=== PATIENT | female | born 1945 | race Caucasian/White ===

== ENCOUNTER 2020-08-30 20:10 | Inpatient (IN) | payer OTHER, MEDICAID, SELFPAY ==
[~2020-08-30] VITALS: Ht 149.9 cm; Wt 52.8 kg
--- NOTE | 2020-08-30 20:20 | NUR ---
PT BROUGHT IN FROM [facility] BY [facility]. PLACED ON BIPAP 08/05 RATE 18 FIO2 100%. ABG TO FOLLOW.
--- NOTE | 2020-08-30 20:25 | NUR ---
RECEIVED REPORT FROM [facility] WITH UNIT#[id number].
--- NOTE | 2020-08-30 20:28 | NUR ---
PATIENT BROUGHT IN BY [facility] WITH UNIT #[id number] FOR C/C OF SOB. PER MEDIC, PATIENT WAS AT [facility]M [facility] FACILITY AND BEGAN EXPERIENCING SOB. PER MEDIC, ONLY MEDICAL HX THEY WERE ABLE TO OBTAIN FROM FACILITY INCLUDED BIPOLAR AND KIDNEY FAILURE. PER MEDICS, PT WAS EXPERIENCING DIARRHEA X3 DAYS. MEDICS WERE UNABLE TO PROVIDE NAME OF [facility] FACILITY BUT PROVIDED ADDRESS, [id number], [place] [id number]. MEDICS DID NOT KNOW IF PATIENT HAD ANY ALLERGIES, MEDICS WERE UNABLE TO PROVIDE FURTHER DETAILS RELATING TO THE EVENTS THAT LED PATIENT TO OUR ED. PATIENT ARRIVED ON BIPAP, PER MEDIC, PT WAS 76% ON BIPAP. PT IS AWAKE, GROANING, SPEECH IS MUFFLED/GARBLED, NOTED SAYING "I WANT TO GO HOME", PATIENT IS UNABLE TO MOVE (4) EXTREMITIES INDEPENDENTLY, PER MEDIC, PATIENT IS BED BOUND (BASELINE), SKIN IS INTACT. PLACED ON FULL CRYPTOGRAPHER AND PULSE OX. DR. LOZADA AND RT LOOMIS AT BEDSIDE WITH MYSELF AND NINA CORNELL. PT IS IN BED 5 IN DIRECT SIGHT OF NURSES'S STATION.
--- NOTE | 2020-08-30 20:32 | NUR ---
DR LOZADA AND RT LOOMIS AT BEDSIDE.
--- NOTE | 2020-08-30 20:33 | NUR ---
IPAP/EPAP IS 18/8, RR 18, O2 100% ON BIPAP.
--- NOTE | 2020-08-30 20:56 | NUR ---
DECREASED FIO2 TO 30% FROM 100% POST ABG RESULTS. SPO2 MAINTAINED AT 94.
--- NOTE | 2020-08-30 21:02 | NUR ---
XRAY AT BEDSIDE.
--- NOTE | 2020-08-30 21:04 | NUR ---
EKG IN PROGRESS.
--- NOTE | 2020-08-30 21:11 | NUR ---
LAB AT BEDSIDE.
--- NOTE | 2020-08-30 21:12 | NUR ---
PT NOTED TO DESAT TO 86% ON BIPAP. RT EBONIE AT BEDSIDE TO INCREASE O2 TO 50% FROM PREVIOUS CHANGE OF 30%. PT O2 NOTED TO BE 88-91% AT THIS TIME.
--- NOTE | 2020-08-30 21:13 | NUR ---
PT DESAT TO 84% AND MAINTAINED. INCREASED FIO2 TO 50%.
--- NOTE | 2020-08-30 21:26 | NUR ---
SPOKE WITH LANIE CHAU FROM "[facility]" THE [facility] FACILITY WHERE PATIENT RESIDES. PER LANIE (COMPUTER SCIENCE INSTRUCTOR), PATIENT HAD DIARRHEA YESTERDAY AND WAS FOUND DROOLING TODAY WHEN PARAMEDICS WERE CALLED. PER LANIE, PATIENT HAS MEDICAL HX OF BIPOLAR DISORDER AND "TALKS TO HERSELF", BASELINE IS AAOX3, INTELLECTUAL DISABILITY, GLAUCOMA, HIGH CHOLESTEROL, HTN, STAGE 3 KIDNEY DISEASE (DOES NOT DO DIALYSIS), IS DEAF AND WEARS HEARING AIDS. PER LANIE, PATIENT'S NIECE GETACHEW PERRY HAS [facility] FOR PATIENT AND THE RN THAT TAKES CARE OF PATIENT IS KRAIG FABIAN AND CAN BE REACHED AT . DR. LOZADA MADE AWARE. LIST OF MEDS WILL BE DOCUMENTED MED REC.
[2020-08-30] MEDS ORDERED: VAL250 PO (21:33)
[2020-08-30] MEDS ORDERED: PROZAC10 M2 (21:34)
[2020-08-30] MEDS ORDERED: ABILIFY15 M1 PO (21:34)
[2020-08-30] MEDS ORDERED: SIMVASTATIN80 M1 PO (21:35)
[2020-08-30 21:36] LABS: CALCIUM 9.6 mg/dL (8.5-10.1); CARBON DIOXIDE 29.2 mmol/L (21-32); CHLORIDE SERUM 99 mmol/L (98-107); CREATININE SERUM 1.8 mg/dL (0.6-1.0); GLUCOSE SERUM 245 mg/dL (74-106); POTASSIUM SERUM 3.7 mmol/L (3.5-5.1); SODIUM SERUM 140 mmol/L (136-145)
[2020-08-30] MEDS ORDERED: LUMIGAN2.5 M1 (21:36)
[2020-08-30] MEDS ORDERED: BETIMOL5 M1 (21:36)
[2020-08-30] MEDS ORDERED: FUROSEMIDE20 MG PO (21:36)
[2020-08-30 21:37] LABS: BASOPHIL % 0.1 % (0-2); PLATELET COUNT 274 x10^3mcL (130-400); RED CELL DISTRIBUTION WIDTH 13.6 % (11.5-14.5)
[2020-08-30] MEDS ORDERED: COZAAR50 M1 PO (21:37)
[2020-08-30] MEDS ORDERED: NATURAL IRON65 MG PO (21:37)
--- NOTE | 2020-08-30 21:39 | NUR ---
PER TONI PERRY WILL FAX [facility] TOMORROW. PER GETACHEW PERRY, [facility] INCLUDE "NOT PROLONGING LIFE". DR. LOZADA AND MARIANN RICE MADE AWARE.
[2020-08-30 21:40] LABS: ALKALINE PHOSPHATASE 115 U/L (46-116); ALT/SGPT 20 U/L (14-59); AST/SGOT 30 U/L (15-37); BILIRUBIN TOTAL 0.7 mg/dL (0.20-1.00); C REACTIVE PROTEIN 3.5 mg/dL (<=0.9); LACTIC DEHYDROGENASE (LDH) 290 U/L (100-190); TOTAL PROTEIN, SERUM 7.6 g/dL (6.4-8.2)
[2020-08-30 21:41] LABS: ALBUMIN 3.2 g/dL (3.4-5.0)
--- NOTE | 2020-08-30 21:58 | NUR ---
PATIENT MEDICATED PER MD ORDER. PT REMAINS ON BIPAP WITH FULL MACHINE ASSEMBLER AND PULSE OX AND IN DIRECT SIGHT OF NURSES'S STATION.
--- NOTE | 2020-08-30 22:33 | NUR ---
RT CALLED AGAIN FOR BREATHING TX. DR. LOZADA AWARE THAT RT WILL BE AT BEDSIDE SHORTLY.
--- NOTE | 2020-08-30 22:57 | NUR ---
RT AT BEDSIDE ADMINISTERING BREATHING TX.
--- NOTE | 2020-08-30 23:18 | NUR ---
RECEIVED VERBAL ORDER FROM TO INSERT VALLES CATHETER. ATTEMPT UNSUCCESSFUL. DR LOZADA CALLED TO BEDSIDE TO EXAMINE PT'S ANATOMY. MYSELF, KRAIG FAROOQ, AND DR LOZADA UNABLE TO ESTABLISH VALLES CATHETER DUE TO INABILITY TO IDENTIFY PT'S URETHRAL OPENING. PER DR LOZADA OK TO NOT ESTABLISH VALLES AT THIS TIME. ASSISTED BY EMT CHRISTEL.
--- NOTE | 2020-08-31 | NUR ---
PT MEDICATED PER MD ORDER. PT REMAINS ON FULL SINGER AND UNLOADER, BIPAP, AND PULSE OX IN DIRECT SIGHT OF NURSE'S STATION.
--- NOTE | 2020-08-31 00:40 | NUR ---
PT NOTED TO BE DOCUMENTED 'DNR'. SPOKE WITH RN CAREN, PER CAREN, PATIENT IS NOT DNR AND IS 'FULL CODE'. PER CAREN, PT HAS NO DOCUMENTATION AT THE [facility] INDICATING PT IS DNR. MD TO BE MADE AWARE. PATIENT DID NOT COME INTO [facility] EMERGENCY DEPARTMENT WITH ANY DOCUMENTATION FROM [facility] INDICATING DNR.
--- NOTE | 2020-08-31 00:44 | NUR ---
PT'S BP NOTED TO BE 198/93. RESIDENT MD ANDERS AT PT'S BEDSIDE AND MADE AWARE OF BP.
--- NOTE | 2020-08-31 00:46 | NUR ---
DR. ANDERS MADE AWARE OF FULL CODE STATUS, PER DR. ANDERS SHE WILL CHANGE CODE STATUS. DR. ANDERS MADE AWARE THAT PT REMAINS TACHYCARDIC, HR:130 WITH BP: 198/93 (128). NO FURTHER ORDERS ANTICIPATED AT THIS TIME.
--- NOTE | 2020-08-31 01:26 | NUR ---
PT MEDICATED PER MD ORDER FOR HTN WITH HYDRALAZINE. PT HEARD SHOUTING "I'M GOING TO THROW UP." PT MEDICATED WITH ZOFRAN PER MD ORDER. DR. ANDERS MADE AWARE OF TACHYCARDIA HR: 137. ASKED PATIENT IF SHE WAS IN PAIN PT SHOUTED "NO!". AWAITNG FURTHER ORDERS.
--- NOTE | 2020-08-31 01:58 | NUR ---
DR ANDERS CALLED REGARDING ORDER FOR KETAMINE TO DECREASE PT AGITATION AND CONTROL HR. PER DR ANDERS OK TO GIVE KETAMINE AT THIS TIME. PER DR ANDERS WILL CHANGE METOPROLOL ORDER TO LABETOLOL FOR HTN.
--- NOTE | 2020-08-31 02:30 | NUR ---
RT EBONIE AT BEDSIDE TO EVALUATE PATIENT.
[2020-08-31 02:40] LABS: CHOLESTEROL/HDL RATIO 2.8; MAGNESIUM 2.1 mg/dL (1.8-2.4); PHOSPHOROUS 4.7 mg/dL (2.5-4.9)
[2020-08-31 02:49] LABS: T3 TOTAL 1.04 ng/mL
[2020-08-31 02:50] LABS: FREE T4 1.37 ng/dL (0.76-1.46); FREE THYROXINE INDEX 4.1 ug/dL (1.4-4.5); T4(THYROXINE) 11.1 ug/dL (4.7-13.3)
--- NOTE | 2020-08-31 03:07 | NUR ---
PATIENT MEDICATED PER MD ORDER. EBONIE VEGA AT BEDSIDE TO RE-EVALUATE PT BIPAP. PT REMAINS ON FULL RAILROAD CAR CLEANER AND PULSE OX. IN FULL SIGHT OF NURSES'S STATION.
--- NOTE | 2020-08-31 03:22 | NUR ---
PATIENT SITTING IN GURNEY IN HIGH YEPEZ'S, ON FULL DINING CHAIR SEAT CUSHION TRIMMER AND PULSE OX. PT IS ABLE TO FOLLOW DIRECTIONS, AND TRACK APPROPRIATELY. PATIENT REMAINS IN DIRECT SIGHT OF NURSES'S STATION.
--- NOTE | 2020-08-31 04:15 | NUR ---
DR. ANDERS PAGED REGARDING PT VITAL SIGNS.
--- NOTE | 2020-08-31 04:29 | NUR ---
DR. ANDERS AT BEDSIDE TO RE-EVALUATE PATIENT.
[2020-08-31 05:16] VITALS: BP 216/98
--- NOTE | 2020-08-31 05:51 | NUR ---
RT AT BEDSIDE.
--- NOTE | 2020-08-31 05:55 | NUR ---
DR VOSS MADE AWARE OF PT'S VITAL SIGNS- 132/87 MAP 102, HR 127, RR 30, 100% ON BIPAP. NO FURTHER ORDERS ANTICIPATED FOR PT'S HR.
--- NOTE | 2020-08-31 06:51 | NUR ---
DR. VOSS MADE AWARE OF PT'S NEW VITALS, BP 149/89 MAP 109, HR 130, RR 36, 100%. DR. VOSS ALSO AWARE OF PT'S PO MEDICATIONS DUE AT 0900AM, PER DR. VOSS TO DOCUMENT THAT MEDICATIONS CANNOT BE GIVEN DUE TO PT BEING ON BIPAP. PER DR. VOSS TO ADMINISTER METOPROLOL AT THIS TIME.
--- NOTE | 2020-08-31 07:16 | NUR ---
PT MEDICATED PER MD ORDER. PT VERBALIZED UNDERSTANDING OF MEDICATION PRIOR TO ADMINISTRATION. PT REMAINS ON VENDING MACHINE COIN COLLECTOR, PULSE OX, AND BIPAP.
--- NOTE | 2020-08-31 07:23 | NUR ---
REPORT GIVEN TO KARAN CORNELL TO ASSUME CARE OF PT.
--- NOTE | 2020-08-31 08:41 | NUR ---
REPORT CALLED TO ABIMBOLA ON SECOND FLOOR. PT HAS CLEARER LUNGS ON RT THAN ON LT DOES GIVE EYE CONTACT WHEN SPOKEN TO.
--- NOTE | 2020-08-31 09:01 | NUR ---
ATTENDING PHYSCIAN NOTIFIED OF LACTIC ACID. NO ORDERS RECIEVED
--- NOTE | 2020-08-31 11:26 | NUR ---
ADMITTING PHYSCIAN (DR. AFRRELL) HERE, DID ROUND ON PT. IS AWARE OF ELEVATED BP AT 144/112,MAP 123. SAT LEVEL AT 100. CONTINUES ON BIPAP
--- NOTE | 2020-08-31 11:57 | NUR ---
SPOKE WITH ZOFIA MERINO ON 2ND FLOOR, TO CHECK IF PT WAS REASSIGNED AN APPROPRIATE ROOM THAT COULD TAKE A BIPAP. STILL NO BED AVAILABLE AT THIS TIME THAT COULD ACCOMODATE A BIPAP.
--- NOTE | 2020-08-31 13:01 | NUR ---
CONTINUES ON BIPAP AT THIS TIME. FOLLOWS COMMAND WITH EYES
--- NOTE | 2020-08-31 14:37 | NUR ---
AWAKE. FOLLOW WITH EYES. IS ABLE TO TALK A BIT WHEN BI PAP MASK IS OFF.
--- NOTE | 2020-08-31 15:57 | NUR ---
ULTRA SOUND AT BEDSIDE. SONOGRAPHY OF LOWER EXT IN PROGRESS
--- NOTE | 2020-08-31 16:57 | NUR ---
STILL NO CHANGES AT THIS TIME. AWAKENS TO VOICE, WHILE DOZING PEACEFULLY. BI PAP DEVICE MAINTAINED
--- NOTE | 2020-08-31 18:08 | NUR ---
ADULT DIAPER SOILED WITH LOOSE STOOL AND URINE. CLEANED AND NEW ADULT DEPEND REPLACED. REPOSITIONED IN BED. IV D5.9 PATENT IN RT EXT JUGULAR AT 80 CC HR. FOLLOWS WITH EYES WHEN SPOKEN TO. DOES HAVE SOME OCCATIONAL VERBAL FEEDBACK
--- NOTE | 2020-08-31 19:21 | NUR ---
REPORT RECEIVED FROM KARAN CORNELL TO ASSUME CARE OF PT.
--- NOTE | 2020-08-31 20:36 | NUR ---
PT IS RESTING IN [place] IRON WORKS, OPENS EYES TO MY VOICE, IN DIRECT SIGHT OF NURSING STATION, ON MEAL MILLER, BIPAP, AND PULSE OX.
--- NOTE | 2020-08-31 21:31 | NUR ---
PATIENT WAS ON BIPAP SETTINGS: 05/04 RATE 18 FIO2 30%. SPO2 99, HR 88 RR 20 WITH GOOD TIDAL VOLUMES AND PRESSURES. PT APPEARED COMFORTABLE WITH NO DISTRESS. REMOVED FROM BIPAP AND PLACED ON 2 L/M VIA NASAL CANNULA. HR 86, RR 21, SPO2 100%. PT RESPONSIVE TO COMMANDS WHEN ASKED TO COUGH TO SUCTION THE BACK OF THE MOUTH. APPEARS COMFORTABLE. WILL CONTINUE TO MONITOR.
--- NOTE | 2020-08-31 21:49 | NUR ---
SPOKE WITH STEVEN FROM PHARMACY WILL BRING 2.25GM OF ZOSYN. PRIMARY RN NINA MADE AWARE.
--- NOTE | 2020-08-31 22:10 | NUR ---
PT MEDICATED PER MD ORDER.
--- NOTE | 2020-08-31 22:20 | NUR ---
PT SPO2 NOTED TO BE 87% WITH SIMPLE MASK. PT COUGHING, COUGH SOUNDS ARE WET. PT SUCTIONED, LIGHT PINK/WHITE SECRETIONS NOTED. PT NOTED TO BE TACHYCARDIC AT 124. PT PLACED ON NRB, SPO2 97%, RT EBONIE AT BEDSIDE. MD ANDERS MADE AWARE.
--- NOTE | 2020-08-31 22:23 | NUR ---
PT DESAT TO 88% ON 2 L/M NASAL CANNULA. PLACED ON SIMPLE MASK AT 10 L/M BUT CONTINUED TO DESAT AND HR INCREASED TO 124. PLACED PT ON NONREBREATHER MASK AT 15 L/M, SPO2 INCREASED AND MAINTAINED AT 98% HR 124 RR 38.
--- NOTE | 2020-08-31 22:37 | NUR ---
PATIENT VERBALIZED "I'M COMFORTABLE" WHEN ASKED. PATIENT SITTING IN SEMI-YEPEZ'S IN [place], AWAKE, ACTING APPROPRIATELY FOR SELF IN DIRECT SIGHT OF NURSES'S STATION.
--- NOTE | 2020-09-01 03:47 | NUR ---
REPORT GIVEN TO BRYANNA CORNELL AT EXT [phone]
--- NOTE | 2020-09-01 04:03 | NUR ---
RECEIVED PT FROM ER DYAN MARTINEZ ACCOMAPNIED BY NURSE. PT IS ADMITTED FOR SOB AND DIARRHEA. PT IS AWAKE, ALERT,ORIENTED TO PERSON AND PLACE. SHE FOLLOWS SIMPLE COMMANDS. PT ON NONREBREATHER MASK AT 15L O2 AND SATTING 91%. LUNG SOUNDS W/ CRACKLES ON BILAT BASES. SHE HAS NO C/O PAIN. BOWEL SOUNDS ACTIVE. PT W/ LOOSE GRRENISH BLACK BM ON ARRIVAL. SKIN ALTERATIONS NOTED. PHOTOS TAKEN. PT CLEANED AND GOWN CHANGED. W/ IVF NS INFUSING VIA IV TO RT EJ. CALL LIGHT PLACED W/IN REACH.
--- NOTE | 2020-09-01 04:11 | NUR ---
PT TRANSFERED TO TELE AT THIS TIME IN NAD. PT AWAKE AND ALERT, ANSWERING QUESTIONS APPROPRIATELY. PT REMAINS ON NON-REBREATHER AT THIS TIME AND IS NOTED IN NO ACUTE RESP DISTRESS. IVS INTACT AND FLUSH WITH NO COMPLICATIONS. IV FLUIDS ENDORSED TO BRYANNA CORNELL. BRYANNA CORNELL AT BEDSIDE TO ASSUME CARE OF PT.
[2020-09-01 05:11] VITALS: BP 147/71
[2020-09-01 06:01] VITALS: BP 147/71
[2020-09-01 07:50] LABS: CARBON DIOXIDE 26.4 mmol/L (21-32); CHLORIDE SERUM 106 mmol/L (98-107); CREATININE SERUM 2.3 mg/dL (0.6-1.0); GLUCOSE SERUM 138 mg/dL (74-106); MAGNESIUM 1.8 mg/dL (1.8-2.4); PHOSPHOROUS 3.8 mg/dL (2.5-4.9); POTASSIUM SERUM 3.8 mmol/L (3.5-5.1); SODIUM SERUM 143 mmol/L (136-145)
[2020-09-01 08:33] VITALS: BP 127/79
[2020-09-01 09:01] LABS: BASOPHIL % 0.2 % (0.2-1.3); PLATELET COUNT 135 x10^3mcL (179-408); RED CELL DISTRIBUTION WIDTH 13.9 % (12.3-17.7)
--- NOTE | 2020-09-01 09:18 | NUR ---
PT WAS SEEN FOR DYSPHAGIA. PT HAD POCKETING FOR PUREE DIET AND ORAL SPILLAGE FOR HONEY THICK LIQUID. RECOMMENDATION NOTHING BY MOUTH
--- NOTE | 2020-09-01 11:09 | NUR ---
PT. ADMITTED WITH LOW FRED SCALE AT RISK, MULTIPLE ECCHYMOSIS TO UPPER ARMS AND BLANCHABLE REDNESS TO SACRAL AND BILATERAL HEELS, NO OPEN ACTIVE WOUNDS, HEEL RAISERS AND BARRIER CREAM APPLIED. INCONTINENT OF BOWEL AND BLADDER. POC DISCUSSED WITH PRIMARY RN, PT. WITH ACTIVE COUGH, HOB ELEVATED. CONTINUE TO FOLLOW PRESSURE INJURY PREVENTION INTERVENTIONS. -APPLY HYDRAGUARD TO SACRALCOCCYX AND ALL EXTREMITIES BID AND LADLE REPAIRER -TURN AND REPOSITION PATIENT Q 2H -ASSESS AND MONITOR SKIN CONDITION DURING POSITION CHANGE -OFFLOAD BILATERAL HEELS BY PLACING PILLOWS UNDER CALVES AT ALL TIMES, UNLESS OTHERWISE CONTRAINDICATED -PRESSURE REDISTRIBUTION BY PLACING PILLOWS AND OFFLOADING SACRALCOCCYX -KEEP SKIN CLEAN AND DRY AT ALL TIMES.
[2020-09-01 13:04] VITALS: BP 125/65
--- NOTE | 2020-09-01 13:20 | NUR ---
PLACED PT ON 10LPM SIMPLE MASK PT TOLERTING WELL WITH NO SIGN OF SOB OR INCREAED WOB NOTED AT THIS TIME. WILL CONTINUE TO MONITOR
[2020-09-01 14:03] LABS: rbc morphology (normal/abnorm) ABNORMAL (NORMAL)
--- NOTE | 2020-09-01 17:10 | NUR ---
RECEIVED PT. AT 0700 IN BED WITH NRB MASK IN PLACE AT 15L, MOIST CONGESTION NOTE, BREATH SOUNDS WITH FINE CRACKLES AND WHEEING NOTED. SUCTIONED PT. WITH SOME IMPROVEMENT NOTED. GOOD ORAL CARE PROVIDED AND REPOSITIONED THE PT. HOB ELEVATED. IN NO DISTRESS AT THIS TIME.
--- NOTE | 2020-09-01 17:14 | NUR ---
PT. NOW ON 9L VIA NRB MASK 02 SAT 97-98%.
[2020-09-01 17:19] VITALS: BP 142/71
--- NOTE | 2020-09-01 19:25 | NUR ---
RECEIVED PT IN BED AWAKE, ALERT, ORIENTED TO PERSON AND PLACE. SHE IS VERY [place]. SHE HAS NO C/O HEADACHE AND DIZZINESS. LUNG SOUNDS W/ COARSE CRACKLES AND RHONCHI BILAT. RESP EVEN AND UNLABORED AT THIS TIME. PT IS ON SIMPLE MASK AT 9L 02. SHE HAS NO C/O PAIN. W/ IV HL TO RT EJ. CALL LIGHT W/IN REACH.
[2020-09-01 20:58] VITALS: BP 145/68
--- NOTE | 2020-09-02 02:52 | NUR ---
PT APPEARS TO BE SLEEPING COMFORTABLY. RESP. EVEN AND UNLABORED.
[2020-09-02 05:01] VITALS: BP 151/71
--- NOTE | 2020-09-02 05:30 | NUR ---
STRAIGHT CATH DONE TO COLLECT URINE SPECIMEN ORDERED. CLEAR YELLOW URINE COLLECTED. PT TOLERATED PROCEDURE WELL .
--- NOTE | 2020-09-02 06:09 | NUR ---
PT SLEPT IN LONG INTERVALS. SHE WAS CALM THROUGHOUT THE NIGHT. SHE HAD NO EPISODE OF RESP. DISTRESS. PT REMAINED ON SIMPLE MASK AT 9L O32. SHE HAD BM X2. IVF D5NS AT 80 CC/HR INFUSING VIA IV TO RTEJ. ALL NEEDS ATTENDED TO.
[2020-09-02 07:33] LABS: CALCIUM 7.5 mg/dL (8.5-10.1); CARBON DIOXIDE 25.8 mmol/L (21-32); CHLORIDE SERUM 111 mmol/L (98-107); CREATININE SERUM 1.7 mg/dL (0.6-1.0); GLUCOSE SERUM 137 mg/dL (74-106); MAGNESIUM 2.1 mg/dL (1.8-2.4); PHOSPHOROUS 3.8 mg/dL (2.5-4.9); POTASSIUM SERUM 3.4 mmol/L (3.5-5.1); SODIUM SERUM 149 mmol/L (136-145)
[2020-09-02 07:54] VITALS: BP 145/75
[2020-09-02 11:26] LABS: CREATININE UR 93.4 mg/dL
[2020-09-02 11:59] VITALS: BP 146/75
[2020-09-02 14:05] LABS: BASOPHIL % 0.4 % (0.2-1.3); PLATELET COUNT 139 x10^3mcL (179-408); RED CELL DISTRIBUTION WIDTH 14.2 % (12.3-17.7)
--- NOTE | 2020-09-02 14:30 | NUR ---
PATIENT TESTED POSITIVE FOR MRSA. CONTACTED Iain FAROOQ TO LET HER KNOW. SHE WILL PLACE ORDER FOR BACTROBAN.
[2020-09-02 16:13] VITALS: BP 150/66
--- NOTE | 2020-09-02 20:28 | NUR ---
RECEIVED PT FROM DAY SHIFT NURSE. PT A/OX2, ORIENTED TO PERSON/PLACE. PT GRAND TRAVERSE. GARBLED SPEECH NOTED. ON TELE#45 READING NSR. NO S/S OF CHEST PAIN OR PRESSURE. PULSES PALPABLE. EDEMA TO BUE/BLE TRACE. RR EVEN AND UNLABORED ON 9L SIMPLE MASK. NO RESP DISTRESS NOTED. PT INCONTINENT OF URINE. GENERALIZED WEAKNESS NOTED. PT HAS ECCHYMOSIS TO BUE AND RUE HEALING WOUND, REDNESS TO PERINEUS/BUTTOCKS, AND REDNESS TO L FOOT. NO C/O PAIN OR DISCOMFORT. IV TO RIJ INFUSING D5NS AT 80ML/HR. CALL LIGHT WITHIN REACH. BED IN LOWEST POSITION. WILL CONTINUE TO MONITOR.
[2020-09-02 20:55] VITALS: BP 145/72
--- NOTE | 2020-09-03 01:20 | NUR ---
PT SLEEPING COMFORTABLY AT THIS TIME. NO SIGNS OF ACUTE DISTRESS NOTED. RR EVEN AND UNLABORED ON 9.5L SIMPLE MASK. NO C/O PAIN OR DISCOMFORT. IV INFUSING FLUIDS AT 80ML/HR. CALL LIGHT WITHIN REACH. WILL CONTINUE TO MONITOR.
[2020-09-03 05:52] VITALS: BP 106/65
[2020-09-03 06:53] LABS: BASOPHIL % 0.1 % (0.2-1.3); PLATELET COUNT 142 x10^3mcL (179-408); RED CELL DISTRIBUTION WIDTH 14.4 % (12.3-17.7)
[2020-09-03 06:57] LABS: CALCIUM 7.5 mg/dL (8.5-10.1); CARBON DIOXIDE 29.1 mmol/L (21-32); CHLORIDE SERUM 117 mmol/L (98-107); CREATININE SERUM 1.5 mg/dL (0.6-1.0); GLUCOSE SERUM 106 mg/dL (74-106); POTASSIUM SERUM 3.3 mmol/L (3.5-5.1); SODIUM SERUM 156 mmol/L (136-145)
--- NOTE | 2020-09-03 07:18 | NUR ---
PT AWAKE RESTING IN BED AT THIS TIME. NO SIGNS OF ACUTE DISTRESS NOTED. RR EVEN AND UNLABORED ON 9.5L SIMPLE MASK. CALL LIGHT WITHIN REACH. BED IN LOWEST POSITION. WILL ENDORSE CARE TO ONCOMING SHIFT NURSE.
[2020-09-03 07:54] VITALS: BP 169/93
[2020-09-03 11:32] VITALS: BP 140/79
[2020-09-03 16:14] VITALS: BP 130/65
--- NOTE | 2020-09-03 20:18 | NUR ---
RECEIVED PT FROM DAY SHIFT NURSE. PT RESTING IN BED AT THIS TIME. NO SIGNS OF ACUTE DISTRESS NOTED. PT ORIENTED TO PERSON. NOORVIK. ON TELE#45, READING NSR. NO S/S OF CHEST PAIN OR PRESSURE. PULSES PALPABLE. EDEMA TO BUE AND BLE. RR EVEN AND UNLABORED ON 9.5L SIMPLE MASK. WET COUGH NOTED, NO SPUTUM FOR CULTURE. PT INCONTINENT OF URINE. GENERALIZED WEAKNESS NOTED. USES WALKER AT BASELINE. PT HAS REDNESS TO L FOOT, ECCHYUMOSIS TO BUE, HEALING WOUND TO RUE AND REDNESS TO FIORELLA-AREA/BUTTOCKS. NO S/S OF PAIN OR DISCOMFORT. IV TO R EJ AND R HAND PATENT AND INTACT. CALL LIGHT WITHIN REACH. BED IN LOWEST POSITION. WILL CONTINUE TO MONITOR.
[2020-09-03 20:32] VITALS: BP 161/69
--- NOTE | 2020-09-04 02:30 | NUR ---
PT OBSERVED SLEEPING. RR EVEN AND UNLABORED ON 9.5L SIMPLE MASK. NO S/S ACUTE DISTRESS. CALL LIGHT WITHIN REACH. WILL CONTINUE TO MONITOR.
[2020-09-04 06:21] VITALS: BP 173/78
--- NOTE | 2020-09-04 07:33 | NUR ---
PT AWAKE IN BED REQUESTING TO GO HOME. RR EVEN AND UNLABORED ON 8.5L SIMPLE MASK. NO SIGNS OF ACUTE DISTRESS NOTED. ALL NEEDS/CONCERNS ADDRESSED THROUGHOUT THE SHIFT. CALL LIGHT WITHIN REACH. CARE ENDORSED TO DAYSHIFT RN
[2020-09-04 07:54] VITALS: BP 182/63
[2020-09-04 07:59] LABS: CARBON DIOXIDE 27.9 mmol/L (21-32); CHLORIDE SERUM 117 mmol/L (98-107); CREATININE SERUM 1.3 mg/dL (0.6-1.0); GLUCOSE SERUM 136 mg/dL (74-106); MAGNESIUM 2.3 mg/dL (1.8-2.4); POTASSIUM SERUM 3.4 mmol/L (3.5-5.1); SODIUM SERUM 155 mmol/L (136-145)
[2020-09-04 08:27] LABS: CALCIUM 7.7 mg/dL (8.5-10.1)
[2020-09-04 12:20] LABS: BASOPHIL % 0.2 % (0.2-1.3); PLATELET COUNT 133 x10^3mcL (179-408); RED CELL DISTRIBUTION WIDTH 14.2 % (12.3-17.7)
[2020-09-04 12:28] LABS: rbc morphology (normal/abnorm) NORMAL (NORMAL)
[2020-09-04 12:45] VITALS: BP 135/72
[2020-09-04 16:40] VITALS: BP 170/60
--- NOTE | 2020-09-04 20:25 | NUR ---
RECEIVED PT FROM DAY SHIFT NURSE. PT A/O X1 TO PERSON. PT IS [place] AND HAS GARBLED SPEECH. PT IS ON TELE #45 WITH NSR. PT HAS NO S/S OF CHEST PAIN OR PRESSURE. PULSE IS PALPABLE. EDEMA TO BUE/BLE. RR EVEN AND UNLABORED. PT ON OXYGEN 4L SIMPLE MASK. BOWEL SOUNDS ACTIVE, LAST BM 09/04/20. PT IS INCONTINENT OF URINE. GENERALIZED WEAKNESS. NEEDS ASSISTANCE TURNING Q2HR, USES WALKER AT BASELINE. REDNESS NOTED ON LEFT FOOT, BUE ECCYMOSIS, AND REDNESS IN FIORELLA-AREA/BUTTOCKS. NO S/S OF PAIN AT THIS TIME. R EJ INFUSING D5NS AT 80 ML/HR, L HAND IV SALINE LOCKED PATENT AND INTACT. CALL LIGHT WITHIN REACH. BED IN LOWEST POSITION. WILL CONTINUE TO MONITOR.
[2020-09-04 21:25] VITALS: BP 174/76
--- NOTE | 2020-09-05 02:12 | NUR ---
PT OBSERVED SLEEPING AT THIS TIME. NO S/S OF ACUTE DISTRESS NOTED. RR EVEN AND UNLABORED. PLACE PT ON NC 4L, SIMPLE MASK D/C. CALL LIGHT WITHIN REACH. BED IN LOWEST POSITION. NO PAIN OR DISCOMFORT NOTED. WILL CONTINUE TO MONITOR.
[2020-09-05 05:36] VITALS: BP 169/59
--- NOTE | 2020-09-05 06:20 | NUR ---
PT OBSERVED RESTING IN BED AT THIS TIME.NO S/S OF ACUTE DISTRESS NOTED. NO C/O PAIN OR DISCOMFORT. RR EVEN AND UNLABORED ON 4L NC. CALL LIGHT WITHIN REACH. BED AT THE LOWEST POSITION. WILL ENDORSE CARE TO ONCOMING NURSE.
--- NOTE | 2020-09-05 07:30 | NUR ---
RECIEVED REPORT FROM [facility] NURSE. PATIENT IS CURRENTLY ON 4 LITER NASAL CANNULA. LUNG SOUNDS DIMINISHED THROUGHOUT. D5NS IS CURRENTLY INFUSING TO REJ IV SITE. PATIENT FAILED SWALLOW EVALUATION PER SPEECH THERAPY NOTES. PATIENT CURRENTLY BEING KEPT NPO. PATIENT IS AWAKE, BUT ONLY ORIENTED X 1. ORIENTED TO SELF ONLY. PATIENT COMES FROM [facility]. FALL PROTOCOLS CURRENTLY IN PLACE. BED IN THE LOW POSITION. BED ALARM ACTIVATED. WILL CONTINUE TO PROVIDE CARE FOR PATIENT.
[2020-09-05 08:08] VITALS: BP 131/65
[2020-09-05 09:04] LABS: CALCIUM 6.7 mg/dL (8.5-10.1); CARBON DIOXIDE 27.7 mmol/L (21-32); CHLORIDE SERUM 115 mmol/L (98-107); CREATININE SERUM 1.1 mg/dL (0.6-1.0); GLUCOSE SERUM 126 mg/dL (74-106); SODIUM SERUM 153 mmol/L (136-145)
[2020-09-05 09:10] LABS: BASOPHIL % 0.1 % (0.2-1.3)
[2020-09-05 09:36] LABS: POTASSIUM SERUM 2.7 mmol/L (3.5-5.1)
--- NOTE | 2020-09-05 09:48 | NUR ---
SPOKE WITH CAPRI THE NURSE PRACTIONER REGARDING PATIENT'S POTASSIUM LEVEL OF 2.7. FURTHER ORDERS TO FOLLOW.
[2020-09-05 09:58] LABS: PLATELET COUNT 125 x10^3mcL (179-408); RED CELL DISTRIBUTION WIDTH 14.6 % (12.3-17.7)
[2020-09-05 12:08] VITALS: BP 119/75
--- NOTE | 2020-09-05 15:24 | NUR ---
PATIENT RETRIEVED FOR VIDEO SWALLOW EVAL.
--- NOTE | 2020-09-05 15:44 | NUR ---
PT WAS SEEN FOR BARRIUM SWALLOW STUDY. PT HAD SILENT ASPIRATION FOR PUREE AND HONEY THICK LIQUID. RECOMMENDATION NOTHING BY MOUTH
--- NOTE | 2020-09-05 16:00 | NUR ---
PATENT HAS RETURNED FROM [facility].
--- NOTE | 2020-09-05 16:00 | NUR ---
Initial Nutrition Assessment: Estella Paz [id number] Dx: Sepsis, COPD exacerbation PMHx: HTN, CKD3, HLD, Bipolar PSHx: None Labs: (09/05) Na 153, K: 2.7, B/C: 28/1.1, Glu: 126, HgbA1C: 5.4%, Ca: 6.7, Ferritin: 1220, Meds: Vancomycin, metoprolol, heparin, feso4, Tricor, Zosyn, Cozaar, Lipitor, D5% Nacl0.9% IV Diet: NPO except meds, failed swallow eval PO intake since admission: 0% Ht: 149.8cm/59" Wt: 52.8kg/116# BMI: 23.5 kg/m2 Bed scale: 130# IBW: 98# %IBW: 118% UBW: unknown Age: 75 y/o F Food Allergies: NKFA per RN Skin condition: redness noted to L foot and buttocks, BUE ecchymosis, Anjel: 15 Edema: edema noted to BUE/BLE Last BM: 09/04 Per H&P 75 y/o F EMS was called due to patient drooling and experiencing some SOB. No previous hx of this occurring before. Per Nurse Estevan pt is somewhat communicative at detention and able to ambulate short distances with help. Pt is sedentary most of the time. RD Note: per Md progress note pt remain in ALOC and using BIPAP prn, getting IV hydration, failed swallow evaluation and NGT has been placed Problem with: N/V/D/C: no known issues per nursing Problems with: Chewing: Swallowing: failed swallow evaluation Current appetite: unknown Recent wt change: unknown %wt change: unknown Vitamin/Supplement use: unknown Special diet at home: unknown Physical activity: unknown Nutrition education given (specify specific nutrition education and handout given): no education given at this time Food-drug interactions? Education given? n/a Estimated Nutritional Needs Based on current body weight 52.8 kg Energy: 7712-2729 kcal/day (30-35 kcal/kg for viral infection) Protein: 63 g/day (1.2 g/kg d/t viral infection with CKD3) Fluid: 0028-1640 mL/day (1 mL/kcal) Nutrition Diagnosis: 1. Increased nutritional needs r/t infection aeb dx of sepsis. Intervention 1. Start oral diet per NETWORK ENGINEER ADMINISTRATOR when appropriate. 2. If patient is unable to start oral diet, recommend TF Jevity 1.2 at goal rate 55cc/hr x 24 hours to provide 1320 cc/1584 kcal/73 g protein/1065 cc free water. FWF 200 cc qshift. Total free water 1665 cc qd. Monitor/Evaluate Goal: PO intake at least 75% of estimated needs Monitor: PO intake, Labs, GI function F/U HR due 2-3 days 09/07-.
--- NOTE | 2020-09-05 16:00 | NUR ---
PATIENT RETURNED TO FLOOR FROM XRAY WITH RIGHT FOREARM SKIN TEAR. WILL PROVIDE WOUND CARE. SKIN TEAR DOCUMENTED AND PICTURES PLACED IN PATIENT'S CHART.
--- NOTE | 2020-09-05 16:01 | NUR ---
1. Start oral diet per SAND SCREENER when appropriate. 2. If patient is unable to start oral diet, recommend TF Jevity 1.2 at goal rate 55cc/hr x 24 hours to provide 1320 cc/1584 kcal/73 g protein/1065 cc free water. FWF 200 cc qshift. Total free water 1665 cc qd.
--- NOTE | 2020-09-05 16:35 | NUR ---
PATIENT RETURNED FROM XRAY WITH RIGHT FOREARM SKIN TEAR. WOULD CARE PROVIDED. GAUZE AND CANDIDO BANDAGE APPLIED TO SITE OF TEAR.
[2020-09-05 16:47] VITALS: BP 150/55
--- NOTE | 2020-09-05 20:30 | NUR ---
PT A&O X1 TO PERSON, PT RESPONDS TO NAME, HAS GARBBLED SPEECH AND DEVELOPMENTALLY DELAYED. PT IS BED FAST WITH BILATERAL HEEL PROTECTORS. PT HAS BRUISING AND SCABS BILATERALLY OF THE UPPER AND LOWER EXTREMITIES. PT HAS A SKIN TEAR OF THE RIGHT FOREARM PER PREVIOUS SHIFT, TEAR IS COVERED WITH STERILE GAUZE, NO ACTIVE BLEEDING NOTED. INTEGUMENTARY SYSTEM IS DRY AND THIN. PT IS ON NASAL CANNULA 4 LITERS, OXYGEN STAURATION OF 99%, RHONCHI HEARD THROUGHOUT. IV OF THE RIGHT JUGULAR VEIN RUNNING WITH DEXTROSE 5%-0.45% NsCl per orders, AND LEFT HAND IV PATENT AND INTACT. NG TUBE PATENT AND INTACT WITH JEVITY 1.2 RUNNING PER ORDERS, NO RESIDUAL NOTED. PT ON TELE #45 SHOWING NSR. PT TURNED TO THE LEFT SIDE, BED LEFT OF THE LOWEST LEVEL, CALL LIGHT WITHIN REACH, BED RAILS UP X2. WILL CONTINUE TO MONITOR.
[2020-09-05 22:12] VITALS: BP 149/58
--- NOTE | 2020-09-06 01:43 | NUR ---
PT RESTING WITH EYES CLOSED. NO C/O OR SIGNS OF PAIN, DISTRESS, OR DISCOMFORT. WILL CONTINUE TO MONITOR.
--- NOTE | 2020-09-06 02:00 | NUR ---
PT RESTING IN BED, NO SISMG OF PAIN, DISTRESS, OR DISCOMFORT. NG TUBE PATENTS, NO RESIDUAL FROM TUBE FEEDING. iNCREASED JEVITY 1.2 INCREASED FROM 20 ML/HR TO 30 ML/HR, PT GOAL IS 55 ML/HR. BED LEFT ON THE LOWEST LEVEL, BED RAILS UPX2, CALL LIGHT WITHIN REACH. WILL CONTINUE TO MONITOR.
--- NOTE | 2020-09-06 03:07 | NUR ---
PT RESTING IN BED WITH EYES CLOSED. NO C/O OR SIGN OF PAIN, DISTRESS, OR DISCOMFORT. BED ON LOWEST LEVEL, BED RAILS UP X2, CALL LIGHT WITHIN REACH. WILL CONTINUE TO MONITOR.
--- NOTE | 2020-09-06 06:12 | NUR ---
PT RESTING IN BED, RESPONDS TO NAME. SKIN TEAR ON RIGHT FOREARM HAS MODERATE BLEEDING. DRESSING CHANGED TO NONADHESIVE DRESSING WITH FISHNET. NO SIGNS OR C/O PAIN, DISTRESS, OR DISCOMFORT. NG TUBE PATENT RUNNING WITH JUVET 1.2, NO RESIDUAL NOTED, INCREASED FEDING TO 40 ML/HR PT GOAL IS 55 ML/HR. PT REMAINS WITH NASAL CANNULA 4 LITERS WITH OXYGEN SATURATION OF 99%. BED LEFT ON THE LOWEST LEVEL, CALL LIGHT WITHIN REACH, BED RAILS UP X2. WILL ENDORSE TO ONCOMING SHIFT.
[2020-09-06 06:46] VITALS: BP 163/67
[2020-09-06 07:44] LABS: BASOPHIL % 0.2 % (0.2-1.3); PLATELET COUNT 131 x10^3mcL (179-408); RED CELL DISTRIBUTION WIDTH 14.4 % (12.3-17.7)
--- NOTE | 2020-09-06 08:00 | NUR ---
RECEIVED PT IN BED A/A/OX1 WITH GARBLED SPEECH, ABLE TO VERBALIZE BASIC NEEDS. RESTLESS AT TIMES, BUT DOES NOT ATTEMPT AT LINES. RESP EVEN AND UNLABORED WITH DIMINISHED BS WITH CRACKLES AND CONGESTED COUGH. ON O2 AT 4L/MIN VIA NC. NGT FEEDING TO RT NARE OF JEVITY 1.2 AT 40ML/HR TO BE ADVANCED Q4HRS. NO RESIDUAL NEEDED. ABD SOFT, NONTENDER WITH ACTIVE BS X4. VOIDING FREELY AND INCONTINENT. NOTED WITH ECCHYMOSIS TO BUE, LARGE SKIN TEAR TO RFA. WITH DRSG IN PLACE CDI. BLANCHABLE ERRYTHEMA TO COCCYX AREA. REPOSITION Q2HRS. HEELS OFF LOADED WITH HEEL PROTECTORS IN PLACE. CALL LIGHT IN REACH NEEDS ATTENDED TO.
[2020-09-06 08:09] LABS: rbc morphology (normal/abnorm) NORMAL (NORMAL)
[2020-09-06 08:15] VITALS: BP 163/65
[2020-09-06 08:38] LABS: CALCIUM 6.7 mg/dL (8.5-10.1); CHLORIDE SERUM 116 mmol/L (98-107); CREATININE SERUM 1.1 mg/dL (0.6-1.0); GLUCOSE SERUM 108 mg/dL (74-106); POTASSIUM SERUM 3.5 mmol/L (3.5-5.1); SODIUM SERUM 153 mmol/L (136-145)
--- NOTE | 2020-09-06 10:40 | NUR ---
NOTED 20ML RESIDUAL FROM NGT, TF INCREASE TO 50ML/HR. FEEDIGN TOLERATED WELL AT THIS TIME. CALL LIGTH IN REACH NEEDS ATTENDED TO.
[2020-09-06 12:28] VITALS: BP 134/55
--- NOTE | 2020-09-06 13:18 | NUR ---
PT RESTING WITH EYES CLOSED. TF TOLERATED. CALM AND COMFORTABLE AT THIS TIME. CALL LIGHT IN REACH NEEDS ATTENDED TO.
--- NOTE | 2020-09-06 15:37 | NUR ---
CHECKED RESIDUAL, NO RESIDUAL AT THIS TIME. FEEDING RATE INCREASED TO 55ML/HR. PT HAS REACHED RATE GOAL AND TOLERATED WELL.
[2020-09-06 16:51] VITALS: BP 130/61
--- NOTE | 2020-09-06 20:00 | NUR ---
PT A/A/O X1, GARBLED SPEECH AND ABLE TO MAKE NEEDS KNOWN. DENIES DIZZINESS AND HEADACHE. BREATH SOUNDS CLEAR. BREATHING EVEN AND UNLABORED ON 4L NC, SPO2 100%. PRODUCTIVE COUGH NOTED, SUCTION PRN. DENIES CHEST PAIN AND PRESSURE. BOWEL SOUNDS ACTIVE. NO C/O N/V AND ABD PAIN. PT WITH NG TUBE ON THE RIGHT NARES WITH TUBE FEEDING OF JEVITY 1.2 RUNNING AT 55 ML/HR WITH 200 ML FREE H2O FLUSH ANTONIO 12 HOURS. NO RESIDUAL OUTPUT NOTED. SCATTERED ECCHYMOSIS NOTED ON BUE. SKIN TEAR WITH DRESSING C/D/I NOTED ON THE RIGHT FOREARM. PT WITH HEEL BOOT PROTECTOR. IV INTACT ON THE REJ AND INFUSING ORDERED AND IV SALINE LOCK NOTED ON THE LEFT HAND. MADE PT COMFORTABLE. PLACED CALL LIGHT WITH IN REACH. WILL CONTINUE TO MONITOR.
[2020-09-06 20:05] VITALS: BP 135/52
--- NOTE | 2020-09-07 00:32 | NUR ---
PT RESTING WITH EYES CLOSED. NO DISTRESS AND DISCOMFORT NOTED. NO RESIDUAL OUTPUT NOTED ON THE NGT, TUBE FEEDING. MADE PT COMFORTABLE. WILL CONTINUE TO MONITOR.
[2020-09-07 05:05] VITALS: BP 145/69
--- NOTE | 2020-09-07 06:20 | NUR ---
PT RESTING WITH EYES CLOSED. EASILY AROUSABLE WITH VERBAL STIMULI. PT CONTINUED TO BE ON TUBE FEEDING. NO RESIDUAL OUTPUT NOTED. IV INTACT AND INFUSING ORDERED. MADE PT COMFORTABLE. WILL ENDORSE TO THE AM NURSE ACCORDINGLY.
[2020-09-07 07:46] LABS: PLATELET COUNT 133 x10^3mcL (179-408); RED CELL DISTRIBUTION WIDTH 14.5 % (12.3-17.7)
--- NOTE | 2020-09-07 07:50 | NUR ---
RECEIVED PT FROM WATER [employer] PROJECT MANAGER NURSE. TELE #45, SR. PT IS A/OX1, GARBLED SPEECH, ABLE TO MAKE NEEDS KNOWN. BREATHING EVEN/UNLABORED ON 4 L NC. IN NO ACUTE RESP DISTRESS. PT IS INCONTINENT, HAD A LOOSE STOOL THIS AM, PROVIDED PERICARE. NG TUBE NOTED OT R GEOVANYE, JEVITY 1.2 RUNING AT 55ML/HR WITH 200ML FWF Q12 HR. NO RESIDUAL NOTED. GEN WEAKNESS NOTED, PT ON BEDREST. BILAT HEEL PROTECTOR IN PLACE. SKIN TEAR NOTED TO RFA, DRESSING CDI. PT IN NO APPARENT PAIN. IV TO REJ PATENT, CDI, INFUSING 1/2 NS AT 75ML/HR. BED IN LOWEST POSITION, BED ALARM ON, CALL LIGHT IN REACH. CONT CURRENT PLAN OF CARE.
[2020-09-07 07:55] LABS: CALCIUM 6.6 mg/dL (8.5-10.1); CHLORIDE SERUM 117 mmol/L (98-107); GLUCOSE SERUM 136 mg/dL (74-106); POTASSIUM SERUM 3.5 mmol/L (3.5-5.1); SODIUM SERUM 151 mmol/L (136-145)
[2020-09-07 08:10] VITALS: BP 159/59
[2020-09-07 11:08] LABS: BASOPHIL % 0 % (0.2-1.3)
[2020-09-07 11:53] LABS: rbc morphology (normal/abnorm) NORMAL (NORMAL)
[2020-09-07 13:06] VITALS: BP 167/75
--- NOTE | 2020-09-07 14:34 | NUR ---
PT AAOX1, ASKING FOR WATER. EDUCATED PT THAT WE CAN ONLY SWAB MOUTH WITH WATER, CANNOT DRINK AT THIS TIME. BREATHING EVEN/UNLABORED ON 3 L NC, IN ACUTE RESP DISTRESS. TUBE FEEDING CONTINUED AT 55 ML/HR, 200ML FWF Q 12 HRS. NO GASTRIC RESIDUAL NOTED AT THIS TIME. MED STUDENT IN ROOM ASSESSING PT. PT VOICES NO FURTHER CONCERS. CONT CURRENT PLAN OF CARE.
[2020-09-07 16:55] VITALS: BP 153/60
--- NOTE | 2020-09-07 17:35 | NUR ---
SPOKE WITH RIKI SPEECH THERAPIST, PT ASPIRATED AGAIN, IS NOT SAFE TO SWALLOW ANYTHING. WILL NOTIFY DR. CADR.
--- NOTE | 2020-09-07 17:56 | NUR ---
PT WAS SEEN FOR DYSPHAGIA. PT HAD POCKETING AND RISK OF ASPIRATION FOR PUREE DIET TRIALS. RECOMMENDATION NOTHING BY MOUTH
--- NOTE | 2020-09-07 18:26 | NUR ---
NOTIFIED DR. GOLDSMITH ABOUT PT'S FAILED SWALLOW EVAL. NO NEW ORDERS. PT A/OX1, SLEEPING, EASILY AROUSABLE TO VOICE. BREATHING EVEN/UNLABORED ON 3 L NC. IN NO ACUTE RESP DISTRESS. JEVITY 1.2 RUNNING AT GOA RATE OF 55ML/HR WITH 200ML FWF Q 12HRS. OML GASTRIC RESIDUAL NOTED. PT IN NO APPARENT PAIN, PT KEEPS ASKING FOR WATER. MOISTENED PT'S MOUTH WITH WATER AND SPONGE, APPLIED MOUTH MOISTURIZER. SUCTIONED PT'S MOUTH, MINIMAL PHLEGM NOTED. PT TOLERATED WELL. PT VOICED NO FURTHER CONCERNS. CONT CURRENT PLAN OF CARE.
--- NOTE | 2020-09-07 20:00 | NUR ---
PATIENT AWAKE, NON VERBAL. ABLE TO TRACK ME WITH HER EYES. NG TO R NARE INTACT. JEVITY INFUSING PER ORDERS. R EJ INFUSING PER ORDERS. TURNING Q2 HOURS. USING PILLOWS WELL. DEVELOPMENTALLY DELAYED. SKIN TEAR TO R FA DRESSING C/D/I. WILL CONTINUE TO MONITOR
[2020-09-07 20:51] VITALS: BP 142/63
--- NOTE | 2020-09-08 05:00 | NUR ---
CALLED HOUSE SUP REGARDING JEVITY FEEDING. NEED NEW BOTTLE. VERBALIZED SHE WILL TRY SOON SHE CAN. NO DISTRES NOTED
[2020-09-08 05:22] VITALS: BP 147/75
--- NOTE | 2020-09-08 07:46 | NUR ---
RECEIVED PT FROM GLOVE CUFFER NURSE. TELE # 45, SR. PT IS AAOX1, CONFUSED, GARBLED SPEECH, BUT ABLE TO MAKE NEEDS KNOWN. PT ASKING TO GO HOME, REORIENTED PT TO WHY SHE IS IN HOSPITAL. BREATHING EVEN/UNLABORED ON 3 L NC, IN NO ACUTE RESP DISTRESS. NG TUBE IN PLACE, PATENT, NO GASTRIC RESIDUAL NOTED. JEVITY 1.2 RUNNING AT GOAL RATE OF 55ML/HR WITH 200 ML FWF Q 12 HRS. PT IS INCONTINENT OF BOWEL AND URINE. GEN WEAKNES NOTED, TURN Q 2 HR. BILAT HEEL PROTECTOR IN PLACE. RFA SKIN TEAR DERSSING IN PLACE, CDI. PT IN NO APPARENT PAIN. IV TO L WRIST PATENT, INFUSING 1/2NS AT 75ML/HR. [facility], BED IN LOWEST POSTIION, BED ALARM ON.
[2020-09-08 08:53] VITALS: BP 152/63
[2020-09-08 10:57] LABS: PLATELET COUNT 119 x10^3mcL (179-408); RED CELL DISTRIBUTION WIDTH 14.6 % (12.3-17.7)
[2020-09-08 11:09] LABS: CALCIUM 6.2 mg/dL (8.5-10.1); CARBON DIOXIDE 28.7 mmol/L (21-32); CHLORIDE SERUM 113 mmol/L (98-107); GLUCOSE SERUM 129 mg/dL (74-106); POTASSIUM SERUM 4.8 mmol/L (3.5-5.1); SODIUM SERUM 149 mmol/L (136-145)
--- NOTE | 2020-09-08 11:09 | NUR ---
OBTAINED CONSENT FROM ANU PERRY ([facility]) FOR EGD/PEG PLACEMENT TODAY. VERIFIED WITH BHAVANA CORNELL.
--- NOTE | 2020-09-08 12:04 | NUR ---
PT GOING FOR EGD/PEG TUBE PLACEMENT, GAVE REPORT TO MIRA CORNELL. PER MIRA, HOLD OFF ON GIVING LASIX AT THIS TIME, SINCE PT IS GOING FOR PROCEDURE.
--- NOTE | 2020-09-08 12:17 | NUR ---
PT OFF UNIT FOR EGD/PEG PLACEMENT AT THIS TIME. TELE BOX STILL IN ROOM. AWAITIN PT ARRIVAL BACK ON UNIT.
[2020-09-08 13:30] LABS: MONOCYTE 5 % (0-7); SEGMENTED NEUTROPHILS 89 % (37-75)
[2020-09-08 13:31] LABS: rbc morphology (normal/abnorm) NORMAL (NORMAL)
[2020-09-08 14:00] VITALS: BP 132/63
--- NOTE | 2020-09-08 14:32 | NUR ---
PT ARRIVED BACK ON UNIT AT 1400. VSS. TELE PLACED BACK ON PT. BREATHING EVEN/UNLABORED ON 2 L NC. IN NO ACUTE RESP DISTRESS. PEG TUBE NOTED, ABD DRESSING AND ABD BINDER CDI, MINIMAL SANGUINOUS DRAINAGE NOTED TO INSERTION SITE. PER DR. NICKERSON'S NOTE, START PT ON JEVITY 1.2 FEEDING AT 30 ML/HR WITH 120 ML FWF Q 4HRS. 0 ML GASTRIC RESIDUAL NOTED AT THIS TIME, TUBE FEEDING STARTED PER ORDERS. IV TO L HAND PATENT, INFUSING 1/2NS AT 75ML/HR. PT IN NO APPARENT PAIN, VOICES NO FURTHER CONCERNS. BED IN LOWEST POSITION, CALL LIGHT IN REACH, BED ALARM ON. SPOKE WITH PHARMACY REGARDING PT'S LANSOPRAZOLE ORDER. PER [facility], WE DO NOT HAVE THIS MED IN HOSPITAL AT THIS TIME, BUT WILL TRY TO GET SOME FROM [facility]. IF WE CANNOT OBTAIN IT, THEN PHARMACY WILL CHANGE ORDER FOR LATER TIME.
[2020-09-08 16:39] LABS: BILIRUBIN DIRECT 0.16 mg/dL (0.0-0.2); BILIRUBIN TOTAL 0.3 mg/dL (0.20-1.00)
[2020-09-08 16:44] LABS: ALBUMIN 1.8 g/dL (3.4-5.0); TOTAL PROTEIN, SERUM 4.6 g/dL (6.4-8.2)
[2020-09-08 17:09] VITALS: BP 128/60
--- NOTE | 2020-09-08 18:50 | NUR ---
PT RESTING WITH EYES CLOSED, TELE # 45 SR. AAOX1, SPEECH GARBLED, ALATNA. BREATHING EVEN/UNLABORED ON 2 L NC. IN NO ACUTE RESP DISTRESS AT THIS TIME. PEG TUBE IN PLACE, 0 ML GASTRIC RESIDUAL AT THIS TIME. FEEDING RATE CONTINUED AT 30 ML/HR W/ 150 ML FWF Q 4 HR. *PHARMACY WAS NOT ABLE TO OBTAIN A LANSOPRAZOLE MEDICATION FROM [facility] TODAY. * WAS NOT GIVEN FOR THAT REASON. SKIN TEAR DRESSING TO RFA IN PLACE, CDI. IV TO LH PATENT, INFUSING 1/2 NS AT 75 ML/HR. WILL ENDORSE TO DIRECTOR OF EVENT MARKETING NURSE.
--- NOTE | 2020-09-08 21:00 | NUR ---
PATIENT RECEIVED FROM RN. LAYING QUIETLY IN BED. NO S/S OF DISTRESS. A/O X 1. SINUS RYTHM ON TELE. INCONTINENT. PEG TUBE RUNNING JEVITY 1.2 AT 30 MLS/HR. FREE WATER FLUSH 150MLS. NO RESIDUALS. GENERALIZED EDEMA. IV FLUIDS RUNNING 1/2 NS ORDERED. ON 2 L NASAL CANULA WITH SATURATION WNL. NO S/S OF DISTRESS, CALL LIGHT WITHIN REACH. WILL CONTINUE TO MONITOR.
[2020-09-08 21:48] VITALS: BP 133/50
--- NOTE | 2020-09-09 | NUR ---
PATIENT IS CALM IN BED AND RESTING. NO S/S OF DISTRESS. RESPIRATION AND SATURATION WNL. BED ALARM ON. BED IN LOWEST POSITION, CALL LIGHT WITHIN REACH. WILL CONTINUE TO MONITOR.
--- NOTE | 2020-09-09 | NUR ---
0000 FEEDING ADVANCED TO 40 MLS/HR. NO RWSIDUALS. PATIENT TOLORATING FEEDING. NO S/S OF DISTRESS, NO S/S OF PAIN. BED IN LOWEST POSITION, CALL LIGHT WITHIN REACH. WILL CONTINUE TO MONITOR.
[2020-09-09 06:19] VITALS: BP 141/50
--- NOTE | 2020-09-09 06:30 | NUR ---
PEG TUBE FEEDING NOW AT 50 MLS/HR. TOLORATING FEEDING NO RESIDUALS. GOWN AND BEDDINGS CHANGED. NO RESIDUALS. NO S/S OF DISTRESS. IV FLUIDS MAINTAINED ORDERED. BED IN LOWEST POSITION, CALL LIGHT WITHIN REACH. WILL ENDORSE CARE TO DAY NURSE.
[2020-09-09 07:09] LABS: BASOPHIL % 0.1 % (0.2-1.3); RED CELL DISTRIBUTION WIDTH 14.5 % (12.3-17.7)
[2020-09-09 07:27] LABS: CALCIUM 6.2 mg/dL (8.5-10.1); CARBON DIOXIDE 27.2 mmol/L (21-32); CHLORIDE SERUM 107 mmol/L (98-107); CREATININE SERUM 0.9 mg/dL (0.6-1.0); GLUCOSE SERUM 105 mg/dL (74-106); POTASSIUM SERUM 3.8 mmol/L (3.5-5.1); SODIUM SERUM 142 mmol/L (136-145)
[2020-09-09 07:44] LABS: PLATELET COUNT 122 x10^3mcL (179-408)
--- NOTE | 2020-09-09 08:00 | NUR ---
PT RECEIVED AWAKE, ALERT. ABLE TO NOD HEAD YES/NO. RESP EVEN, SHALLOW ON O2 @ 2L/MIN VIA NC. DIM BILATERAL LUNG SOUNDS. TELE #45, SR, HR 60'S. ABD ROUND/SOFT WITH ACTIVE BS IN ALL QUADS. PEG PLACEMENT AUSCULTATED, NO RESIDUAL NOTED. ABD BINDER IN PLACE. PRESSURE POINTS OFFLOADED. BILATERAL HEAL PROTECTORS IN PLACE. FALL PRECAUTIONS. WILL CONTINUE TO MONITOR.
[2020-09-09 09:06] VITALS: BP 153/67
--- NOTE | 2020-09-09 10:30 | NUR ---
PT AWAKE AND TALKING WITH GARBLED SPEECH. WILL CONTINUE TO MONITOR.
--- NOTE | 2020-09-09 11:34 | NUR ---
DRESSING ON RFA SKIN TEAR CHANGED. PT TOLERATED WELL.
--- NOTE | 2020-09-09 12:28 | NUR ---
RECEIVED ORDERS FOR PLEURAL FLUID EVAL, DR SALMON SPOKE WITH DANNY REGARDING NEED FOR THORACENTESIS. DANNY TRYING TO REACH PATIENT'S NIECE WHO IS DPOA FOR HEALTH CARE DECISIONS TO OBTAIN CONSENT. UNABLE TO CONTACT PATIENT'S NIECE AT THIS TIME.
[2020-09-09 12:31] VITALS: Ht 149.9 cm; Wt 52.8 kg
[2020-09-09 13:55] VITALS: BP 159/60
--- NOTE | 2020-09-09 14:52 | NUR ---
LEFT THORACENTESIS DONE. 1200ML FLUID OUT. SPECIMENS SENT TO LAB. CXR ORDERED AND PENDING. PT TOLERATED WELL. WILL CONTINUE TO MONITOR.
--- NOTE | 2020-09-09 15:02 | NUR ---
DR SALMON SPOKE WITH PATIENTN'S NIECE FOR INFORMED CONSENT FOR THORACENTESIS. LEFT SIDE TAPPED FOR 1200 ML LIGHT YELLOW FLUID AND SENT TO LAB. NOTIFIED DRAG DOWN DANNY THAT SPECIMEN GOING TO LAB, POST PROCEDURE REPORT GIVEN TO JOHN LEIJA. CHEST XRAY POST THORA ORDERED AND DEPT NOTIFIED. PATIENT INCONTINENT LARGE AMOUNT OF URINE, NURSING STAFF NOTIFIED.
--- NOTE | 2020-09-09 15:52 | NUR ---
Follow-up Nutrition Assessment [address] NAMITA ESPINAL 75F MR Dx: Sepsis, COPD exacerbation PMHx: HTN, CKD3, HLD, Bipolar Labs: (09/09) BUN 30.0H, CA 6.2L, WBC 13.3H, RBC 3.17L, H/H 9.9L/30L, PLT 122L (09/05) Na 153, K: 2.7, B/C: 28/1.1, Glu: 126, HgbA1C: 5.4%, Ca: 6.7, Ferritin: 1220, Meds: Lansoprazole, Ferrous Sulfate, Lopressor, Valproic Acid, KCL 10%, Cozaar, Lasix, Colace, Zosyn, Carafate, Sodium CHL, Lipitor, Apresoline TF: Jevity 1.2 at 60ml/hr, FWF 150 ml Q4H + Prosource TID TF infusion (ml): (09/09): 310, (09/07) 1295, (09/06) 300 Residuals: none noted Weights: (09/09): 52.75 kg, (09/05): 52.8kg Bed scale (09/09) 79 kg/174.2 lbs, (09/05): 130 lbs BMI: 23.5 kg/m2 Skin condition: skin tear on Right forearm Anjel:13 Edema: edematous Last BM: 09/06 I/O(ml): (09/09) 1010/3=6061, (09/08) 1450/0=1296, (09/07) 3710/2=1844, ( last RD Note (09/05): per Md progress note pt remain in ALOC and using BIPAP prn, getting IV hydration, failed swallow evaluation and NGT has been placed Per progress note (09/08): failed swallow eval again yesterday, spoke to patients CINTIA, Odette and is agreeable to gt placement today. RD note (09/09): Per progress note (09/09): patient awake, alert tolerating gt noted to be edematous. XR CHEST reviewed. Complete opacification of the left hemithorax which may represent, large effusion, atelectasis, infiltrate, or examination of the 3. Mild patchy airspace edema versus infiltrate of the right lung. Pt was observed lying in bed, awake, and able to make eye contact. TF was paused d/t a schedule procedure (thoracentesis) per RN. No n/v/ d/c/ reported per RN. GRV were no checked per RN. Pt's RN reported that TF was previously infusing at 50 ml/hr, and RN did not know if pt was receiving Prosource TID. Estimated Nutritional Needs Based on current body weight 52.8 kg Energy: 6120-2952 kcal/day (30-35 kcal/kg for viral infection) Protein: 63 g/day (1.2 g/kg d/t viral infection with CKD3) Fluid: 1052 - 1320 (20 - 25 ml/kg for pt is edematous, on Lasix and positive fluid balance) Nutrition Diagnosis: 1. Increased nutritional needs r/t infection a/e/b dx of sepsis. Intervention 1. TwoCal HN 35ml/hr. At goal rate formula will provide 840 cc solution, 1680 kcal, 70 g protein, and 588 cc free water. This will meet 91% energy needs and 111% protein needs. 2. Recommend FWF 150 ml Q6H to provide additional 600 ml for a total water 1188 ml/day, this meets 90% fluid needs. 3. Recommend d/c Prosource. Monitor/Evaluate Goal: TF infusion at least 75% of estimated needs (not met, ongoing). Monitor: TF infusion rate, Labs, GI function, Body Weight F/U 2-3 as high risk due 09/11-
--- NOTE | 2020-09-09 16:10 | NUR ---
DIETITIAN CO-SIGN The Nutrition Notes documented by the Logistics Analytics Manager have been reviewed. Reviewed/Co-Signed by: Isacc Rubalcava Documentation Done by: Britney Owen
[2020-09-09 16:37] VITALS: BP 108/42
--- NOTE | 2020-09-09 17:30 | NUR ---
ENDORSED PATIENT TO [place].
--- NOTE | 2020-09-09 19:22 | NUR ---
PT IN BED EASILY AROUSABLE. BREATHING EASY AND UNLABORED ON 2LPM VIA NC. ON GT FEEDING JEVITY 1.2 AT 60CC/HR. NO FACIAL GRIMACING OR GRUNTING. KEPT DRY AND COMFORTABLE. BED IN LOWEST POSITION. CALL LIGHT WITHIN REACH. ENDORSE CARE TO INCOMING RN.
--- NOTE | 2020-09-09 20:30 | NUR ---
patient has bilateral arm edema, no pitting bilateral lower extremity edema pitting . PT has an IV on right neck,. flushed no blood return but flused well. CHARGE NURSE CHECKED IV, AND Agreed ok to use , no redness , no swellign on IV site .
--- NOTE | 2020-09-09 21:00 | NUR ---
PATIENT LAYING ON HER BACK
[2020-09-09 21:19] LABS: APPEARANCE FLUID HAZY; COLOR FLUID PALE YELLOW; LYMPHOCYTE FLUID 7 %; MONOCYTE FLUID 9 %; RBC FLUID 147 /cumm; SOURCE FLUID PLEURAL; WBC FLUID 23 /cumm
[2020-09-09 21:21] VITALS: BP 97/56
--- NOTE | 2020-09-09 22:00 | NUR ---
Checked placement and residual . no residual
--- NOTE | 2020-09-09 22:59 | NUR ---
PT TUNRED TO HER RIGHT SIDE
--- NOTE | 2020-09-10 03:10 | NUR ---
pt was cleaned , she had diarrhea, she appeared warm, and was coughing Vital signs checked BP 106/47 TEMP 97.4 RR 20 O2 SATURATION 95% ON 2 LITERS . WILL CONTINUE TO MONTITOR NO WHEEZING NO SHORTNESS OF BREATH NOTED WILL CONTINUE TO MONITOR
--- NOTE | 2020-09-10 03:13 | NUR ---
Informed charge nurse of vital signs and IW coughing . She is AWARE NS TKO TURNED OFF HEAD OF BED ELEVATED PT TURNED ON LEFT SIDE
--- NOTE | 2020-09-10 04:15 | NUR ---
DRESSING ON LEFT ARM CHANGED
[2020-09-10 04:50] VITALS: BP 112/50
--- NOTE | 2020-09-10 05:10 | NUR ---
Patient has redeness in the perenial area. cream applied .
--- NOTE | 2020-09-10 07:40 | NUR ---
RECEIVED PT. IN BED AWAKE AND ALERT. PT. DOES NOT SEEM TO ENGAGE IN CONVERSATION MUCH. NO SOB, NO N/V NOTED. PT. DENIES ANY PAIN AT THIS TIME. PT. IS ON AIR MATTRESS. IVF 1/2NS RUNNING AT 10 CC/HR VIA IV SITE AT R NECK. PT. IS POSITIVE FOR MRSA NARES. PT. IS ON GT FEEDING WITH JEVITY 1.2 RUNNING AT 60 CC/HR. 10 CC OF GT RESIDUAL NOTED AT THIS TIME. ELIZABETH. HEEL PROTECTORS IN PLACE. BED IN LOW POS., CALL LIGHT WITHIN REACH. SIDE RAILS UP X3.
[2020-09-10 09:18] VITALS: BP 134/59
[2020-09-10 09:54] LABS: BASOPHIL % 0.1 % (0.2-1.3); RED CELL DISTRIBUTION WIDTH 14.4 % (12.3-17.7)
[2020-09-10 11:43] LABS: PLATELET COUNT 102 x10^3mcL (179-408)
[2020-09-10 11:44] LABS: rbc morphology (normal/abnorm) NORMAL (NORMAL)
[2020-09-10 11:53] LABS: CALCIUM 6.1 mg/dL (8.5-10.1); CARBON DIOXIDE 28.5 mmol/L (21-32); CHLORIDE SERUM 108 mmol/L (98-107); GLUCOSE SERUM 89 mg/dL (74-106); POTASSIUM SERUM 4.2 mmol/L (3.5-5.1); SODIUM SERUM 145 mmol/L (136-145)
[2020-09-10 12:11] VITALS: BP 118/49
--- NOTE | 2020-09-10 14:27 | NUR ---
DRESSING TO SKIN TEAR AT R FA CHANGED RECOMMENDED BY WOUND CARE NURSE. GT DRESSING ALSO CHANGED.
[2020-09-10 17:04] VITALS: BP 150/61
--- NOTE | 2020-09-10 19:00 | NUR ---
GT RESIDUAL = 20 CC. GT TUBING CHANGED.
--- NOTE | 2020-09-10 19:50 | NUR ---
RECEIVED PT IN BED RESTING COMFOTABLY WITH EYES CLOSED, EASILY AROUSABLE. PT IS ALERT, RESPONDS TO VERBAL AND TACTILE STIMULI, UNABLE TO FOLLOW COMMANDS, UNABLE TO MAKE NEEDS KNOWN. TENDS TO JUST STARE WHEN BEING TALKED TO. LUNGS SOUNDS CLR BILATERALLY, RESP IS EVEN AND UNLABORED, ON 2L VIA NC WITH SPO2 OF 100%. ON TELE 45, NO C/O CHEST PAIN NOTED. RADIAL AND PEDAL PULSES PRESENT, TRACE EDEMA NOTED ON BLE AND BUE. PT HAS GT CONNECTED TO [employer] 1.2 AT 60ML /HR, YUDI WELL. SKIN IS WARM, DRY AND INTACT, SOME BLUISH DISCOLORATION ON BUE AND RIGHT KNEE, RFA SKIN TEAR WITH DRY SCAB NOTED. BED TO LOWEST POSITION, CALL LIGHT WITHIN REACH, WILL CONT TO MONITOR FOR CHANGES IN CONDITION.
[2020-09-10 21:00] VITALS: BP 132/56
[2020-09-11 05:28] VITALS: BP 110/48
[2020-09-11 06:53] LABS: BASOPHIL % 0.2 % (0.2-1.3)
[2020-09-11 07:07] LABS: CARBON DIOXIDE 31.3 mmol/L (21-32); CHLORIDE SERUM 103 mmol/L (98-107); CREATININE SERUM 0.9 mg/dL (0.6-1.0); GLUCOSE SERUM 114 mg/dL (74-106); POTASSIUM SERUM 4.4 mmol/L (3.5-5.1); SODIUM SERUM 139 mmol/L (136-145)
[2020-09-11 07:15] LABS: CALCIUM 5.5 mg/dL (8.5-10.1)
--- NOTE | 2020-09-11 07:29 | NUR ---
PT IN BED RESTING COMFORTABLY WITH EYES CLOSED, NO C/O PAIN, NO ACUTE DISTRESS NOTED, RESP IS EVEN AND UNLBAORED. NEEDS ATTENDED AND MET, FREQUENT VISUAL MONITORING RENDERED. NO SIGNICANT CHANGE OVERNIGHT, BED TO LOWEST POSITION, CALL LIGHT WIHTIN REACH, ENDORSED CARE TO AM SHIFT NURSE. CONT ON TF JEVITY 1.2 @ 60 ML.
[2020-09-11 07:31] LABS: PLATELET COUNT 103 x10^3mcL (179-408); RED CELL DISTRIBUTION WIDTH 14.6 % (12.3-17.7)
[2020-09-11 07:46] VITALS: BP 111/49
--- NOTE | 2020-09-11 07:50 | NUR ---
RECEIVED PT. IN BED AWAKE AND ALERT. NO SOB, NO N/V NOTED. PT. SEEMS TO STARE AT NURSE AND GIVES SLOW, MINIMAL VERBAL RESPONSE WHEN BEING ASKED QUESTIONS. IVF 1/2NS RUNNING AT 10 CC/HR VIA IV SITE AT R NECK. ELIZABETH. HEEL PROTECTORS IN PLACE. PT. IS ON AIR MATTRESS. MRSA NARES SCREENING WAS POSITIVE. PT. IS ON GT FEEDING WITH JEVITY 1.2 RUNNING AT 60 CC/HR. NO GT RESIDUAL NOTED. BED IN LOW POS., CALL LIGHT WITHIN REACH. SIDE RAILS UP X3.
[2020-09-11 07:52] LABS: rbc morphology (normal/abnorm) NORMAL (NORMAL)
[2020-09-11 13:00] VITALS: BP 127/48
--- NOTE | 2020-09-11 17:30 | NUR ---
REMAINS IN STABLE CONDITION AT THIS TIME. GT TUBING CHANGED. DRESSING OF SKIN TEAR AT R FA CHANGED. NO GT RESIDUAL NOTED.
[2020-09-11 18:30] VITALS: BP 130/52
[2020-09-11 21:08] VITALS: BP 128/63
--- NOTE | 2020-09-12 04:31 | NUR ---
NO SIGNS OF DISTRESS, RESTING COMFORTABLY, VITAL SIGNS ARE STABLE, ON 2L/NC 99%, TUBE FEEDING VIA GTUBE, NO RESIDUAL, TOLERATING WELL. WAITING FOR SNF PLACEMENT.
[2020-09-12 05:10] VITALS: BP 119/51
--- NOTE | 2020-09-12 07:35 | NUR ---
RECEIVED PT IN NO ACUTE DISTRESS. SLEEPING BUT AROUSABLE. MARSHALL. RESP EVEN AND UNLABORED ON 2L NC. SR ON TELE MONITOR. IV WITH NO REDNESS OR SWELLING. GEN WEAKNESS. TRACE EDEMA BLE. G TUBE IN PLACE, DRESSING C/D/I. JEVITY 1.2 INFUSING AT 60 ML/HR WITH FWF 150 ML Q4H. HOB ELEVATED. ON AIR MATTRESS. DRESSING TO RFA, C/D/I. BILAT HEEL PROTECTORS IN PLACE. BUE ECCHYMOSIS, SAVITA. BED IN LOW POSITION, CALL LIGHT WITHIN REACH. WILL CONTINUE TO MONITOR.
[2020-09-12 08:22] LABS: BASOPHIL % 0.2 % (0.2-1.3); RED CELL DISTRIBUTION WIDTH 14.5 % (12.3-17.7)
[2020-09-12 08:24] LABS: CHLORIDE SERUM 100 mmol/L (98-107); CREATININE SERUM 0.9 mg/dL (0.6-1.0); GLUCOSE SERUM 120 mg/dL (74-106); POTASSIUM SERUM 4.6 mmol/L (3.5-5.1); SODIUM SERUM 135 mmol/L (136-145)
[2020-09-12 08:52] VITALS: BP 133/61
[2020-09-12 08:53] LABS: CALCIUM 5.6 mg/dL (8.5-10.1)
[2020-09-12 08:54] LABS: PHOSPHOROUS 3.4 mg/dL (2.5-4.9)
--- NOTE | 2020-09-12 12:45 | NUR ---
RESTING IN BED. NO ACUTE DISTRESS. AWAKE, ABLE TO GIVE 1 WORD ANSWERS AT TIMES. RESP EVEN AND UNLABORED ON 2L NC. NO PAIN NOTED. NEW TUBE FEEDING BAG AND TUBING APPLIED. RESIDUAL 20 ML, REPLACED. IV WITH NO REDNESS OR SWELLING. ON AIR MATTRESS. HOB ELEVATED. CALL LIGHT WITHIN REACH. WILL CONTINUE TO MONITOR.
[2020-09-12 12:52] LABS: PLATELET COUNT 101 x10^3mcL (179-408)
[2020-09-12 13:00] VITALS: BP 120/57
[2020-09-12 13:33] LABS: rbc morphology (normal/abnorm) NORMAL (NORMAL)
--- NOTE | 2020-09-12 15:46 | NUR ---
Follow-up Nutrition Assessment [address] NAMITA ESPINAL 75/F Dx: Sepsis, COPD exacerbation PMHx: HTN, CKD3, HLD, Bipolar Labs: (09/11) H/H 8.6/25L, BUN 22H, BG 114H, CA 5.5L (09/09) BUN 30.0H, CA 6.2L, WBC 13.3H, RBC 3.17L, H/H 9.9L/30L, PLT 122L (09/05) Na 153, K: 2.7, B/C: 28/1.1, Glu: 126, HgbA1C: 5.4%, Ca: 6.7, Meds: Lansoprazole, Ferrous Sulfate, Lopressor, Valproic Acid, KCL 10%, Cozaar, Lasix, Colace, Zosyn, Carafate, Sodium CHL, Lipitor, Apresoline TF: Jevity 1.2 at 60ml/hr, FWF 150 ml Q4H + Prosource TID TF infusion (ml): (09/12) 1260mls (09/11) 1260mls (09/10) NONE (09/09): 310, (09/07) 1295, (09/06) 300mls Residuals: none noted Weights: (09/09): 52.75 kg, (09/05): 52.8kg Bed scale (09/09) 79 kg/174.2 lbs, (09/05): 130 lbs BMI: 23.5 kg/m2 Skin condition: skin tear on Right forearm Anjel:12 Edema: trace edema BLE Last BM: 09/11 I/O(ml): (09/11) 2360/2= 2358 (09/10) 0/1= -1(09/09) 1010/6=2005, (09/08) 1450/6=3148, (09/07) 3710/0=7532 Per progress note (09/08): failed swallow eval again yesterday, spoke to patients POA, Odette and is agreeable to gt placement today. RD note (09/09): Per progress note (09/09): patient awake, alert tolerating gt noted to be edematous. XR CHEST reviewed. Complete opacification of the left hemithorax which may represent, large effusion, atelectasis, infiltrate, or examination of the 3. Mild patchy airspace edema versus infiltrate of the right lung. Pt was observed lying in bed, awake, and able to make eye contact. TF was paused d/t a schedule procedure (thoracentesis) per RN. No n/v/ d/c/ reported per RN. GRV were no checked per RN. Pt's RN reported that TF was previously infusing at 50 ml/hr, and RN did not know if pt was receiving Prosource TID. RD note (09/11): Patient on 2L O2 and has continued on PEG tube feedings of Jevity 1.2 at goal 60mls/hr. Noted by RN tf residual of 20mls, replaced this morning. Has noted to have some trace edema but otherwise tolerating feeds. S/P thoracentesis therefore tf held on 09/10. On aspiration precautions. Currently meeting estimated needs. Will continue to monitor. Estimated Nutritional Needs Based on current body weight 52.8 kg Energy: 8919-3238 kcal/day (30-35 kcal/kg for viral infection) Protein: 63 g/day (1.2 g/kg d/t viral infection) Fluid: 1052 - 1320 (20 - 25 ml/kg for pt is edematous, on Lasix and positive fluid balance) Nutrition Diagnosis: 1. Increased nutritional needs r/t infection a/e/b dx of sepsis/ viral infection. Intervention 1. TwoCal HN 35ml/hr. At goal rate formula will provide 840 cc solution, 1680 kcal, 70 g protein, and 588 cc free water. This will meet 91% energy needs and 111% protein needs. 2. Recommend FWF 150 ml Q6H to provide additional 600 ml for a total water 1188 ml/day, this meets 90% fluid needs. 3. Recommend d/c Prosource. Monitor/Evaluate Goal: TF infusion at least 75% of estimated needs (met, ongoing). Monitor: TF infusion rate, Labs, GI function, Body Weight F/U 2-3 as high risk due 09/14-
[2020-09-12 16:38] VITALS: BP 145/58
--- NOTE | 2020-09-12 17:44 | NUR ---
RIGHT ARM WOUND CARE DONE ORDERED. DRESSING C/D/I. PT ALSO HAD BM. CLEANED AND REPOSITIONED. OPTIFOAM APPLIED TO SACRUM. BLANCHABLE ERYTHEMA NOTED TO SACRUM. HOB ELEVATED. ON AIR MATTRESS. BILAT HEEL PROTECTORS IN PLACE. WILL CONTINUE TO MONITOR.
--- NOTE | 2020-09-12 18:16 | NUR ---
PT RESTING IN BED. NO ACUTE DISTRESS. AWAKE, GIVES ONE WORD ANSWER AT TIMES. RESP EVEN AND UNLABORED ON 1L NC. NO C/O PAIN. IV WITH NO REDNESS OR SWELLING. HOB ELEVATED. TF INFUSING AT 60 ML/HR. RESIDUAL 30 ML, REPLACED. ASPIRATION PRECAUTIONS. CONTACT ISOLATION. BED IN LOW POSITION, CALL LIGHT WITHIN REACH. WILL ENDORSE TO ONCOMING SHIFT.
[2020-09-12 21:34] VITALS: BP 136/62
--- NOTE | 2020-09-13 05:00 | NUR ---
PATIENT RESTING IN BED, NO DISTRESS, VITAL SIGNS ARE STABLE, TUBE FEEDING TOLERATED.
[2020-09-13 06:24] VITALS: BP 100/45
--- NOTE | 2020-09-13 07:25 | NUR ---
RECEIVED PT IN NO ACUTE DISTRESS. SLEEPING BUT AROUSABLE. RESP EVEN AND UNLABORED ON RA. NO PAIN NOTED. GEN WEAKNESS. ON AIR MATTRESS. BILAT HEEL PROTECTORS IN PLACE. PEG TUBE WITH DRESSING C/D/I. TF INFUSING AT 60 ML/HR, RESIDUAL 30 ML, REPLACED. HOB ELEVATED. IV WITH NO REDNESS OR SWELLING. RFA DRESSING C/D/I. ECCHYMOSIS BUE, SAVITA. BED IN LOW POSITION, CALL LIGHT WITHIN REACH. WILL CONTINUE TO MONITOR.
[2020-09-13 07:31] LABS: BASOPHIL % 0.4 % (0.2-1.3); RED CELL DISTRIBUTION WIDTH 14.5 % (12.3-17.7)
[2020-09-13 07:57] LABS: CHLORIDE SERUM 99 mmol/L (98-107); GLUCOSE SERUM 103 mg/dL (74-106); POTASSIUM SERUM 4.3 mmol/L (3.5-5.1); SODIUM SERUM 134 mmol/L (136-145)
[2020-09-13 08:47] VITALS: BP 97/45
[2020-09-13 08:47] LABS: PLATELET COUNT 107 x10^3mcL (179-408)
[2020-09-13 08:48] LABS: rbc morphology (normal/abnorm) NORMAL (NORMAL)
[2020-09-13 08:58] LABS: CALCIUM 5.5 mg/dL (8.5-10.1)
[2020-09-13] MEDS ORDERED: FERL PO (10:43)
[2020-09-13] MEDS ORDERED: APR10 PO (10:44)
[2020-09-13] MEDS ORDERED: LIPI20 GT (10:44)
[2020-09-13] MEDS ORDERED: METOPROLOL TART25 M1 PO (10:44)
[2020-09-13] MEDS ORDERED: FENOFIBRATE48 M1 PO (10:44)
[2020-09-13] MEDS ORDERED: COZ50 PO (10:44)
[2020-09-13] MEDS ORDERED: VALLUD PO (10:45)
[2020-09-13] MEDS ORDERED: CARL GT (10:45)
[2020-09-13] MEDS ORDERED: ABILIFY10 M2 PO (10:45)
[2020-09-13] MEDS ORDERED: KCL20L NG (10:45)
[2020-09-13] MEDS ORDERED: LASIX20 MG PO (10:46)
[2020-09-13] MEDS ORDERED: VANCO 1 GR1 GM/250 M IV (10:46)
[2020-09-13] MEDS ORDERED: [UNRECOGNIZED DRUG - CODE] IV (10:47)
[2020-09-13 12:07] VITALS: BP 102/46
--- NOTE | 2020-09-13 12:53 | NUR ---
PT RESTING IN BED. HAD BM, CLEANED AND REPOSITIONED. IV WITH NO REDNESS OR SWELLING. HOB ELEVATED. TF INFUSING AT 60 ML/HR, RESIDUAL 20 ML, REPLACED. LINEN AND GOWN CHANGED. CALL LIGHT WITHIN REACH. WILL CONTINUE TO MONITOR.
[2020-09-13 13:09] LABS: calcium (part of PTHIC) 5.5 mg/dL (8.7-10.3)
--- NOTE | 2020-09-13 13:25 | NUR ---
LEFT MESSAGE FOR CAPRI SHIPMAN REGARDING CALCIUM 5.5. AWAITING CALL BACK.
--- NOTE | 2020-09-13 13:57 | NUR ---
CAPRI SHIPMAN MADE AWARE OF CALCIUM 5.5. PER [facility] SHIPMAN, SHE WILL ADD ORDERS.
--- NOTE | 2020-09-13 15:14 | NUR ---
REPORT GIVEN TO TAE CORNELL FROM [facility]. PT GOING TO ROOM 17-B, ACCEPTING PHYSICIAN DR. STODDARD. [facility] SET BETWEEN [phone].
--- NOTE | 2020-09-13 16:16 | NUR ---
PT DISCHARGED TO [facility] IN NO ACUTE DISTRESS. AWAKE, ALERT, CONFUSED. RESP EVEN AND UNLABORED ON RA. VSS. DISCHARGE PACKET GIVEN TO TRANSPORT STAFF. BELONGINGS WITH PT. TELE REMOVED. PEG TUBE IN PLACE. IV TO LEFT HAND S/L WITH NO REDNESS OR SWELLING. TONI CHILEL AWARE OF TRANSFER. [facility] TEAM ACCOMPANIED PT TO [facility].
[2020-09-14 10:05] LABS: VITAMIN D 1,25 DIHYDROXY 22.6 pg/mL (19.9-79.3)
== END 2020-09-13 16:20 | DRG 871 ==
LOC: ED 20:10 → DU 23:54
PROVIDERS: Emergency Medicine; Internal Medicine; Internal Medicine Gastroenterology; Specialist; ADMIT Family Medicine; ATTEND Family Medicine
PROC: 5A09357 Assistance with Respiratory Ventilation, Less than 24 Consecutive Hours, Continuous Positive Airway Pressure (ICD-10-PCS; 2020-08-31)
PROC: 0D9670Z Drainage of Stomach with Drainage Device, Via Natural or Artificial Opening (ICD-10-PCS; principal; 2020-09-08 12:00)
PROC: 0DB68ZX Excision of Stomach, Via Natural or Artificial Opening Endoscopic, Diagnostic (ICD-10-PCS; 2020-09-08 12:00)
PROC: 0W9B3ZZ Drainage of Left Pleural Cavity, Percutaneous Approach (ICD-10-PCS; 2020-09-09)
DX: A41.9 Sepsis, unspecified organism (principal); K29.71 Gastritis, unspecified, with bleeding; J96.21 Acute and chronic respiratory failure with hypoxia; J96.22 Acute and chronic respiratory failure with hypercapnia; J44.1 Chronic obstructive pulmonary disease with (acute) exacerbation; N39.0 Urinary tract infection, site not specified; N17.9 Acute kidney failure, unspecified; E87.0 Hyperosmolality and hypernatremia; G93.40 Encephalopathy, unspecified; J90 Pleural effusion, not elsewhere classified; Z20.828 Contact with and (suspected) exposure to other viral communicable diseases; R65.20 Severe sepsis without septic shock; I16.0 Hypertensive urgency; D63.8 Anemia in other chronic diseases classified elsewhere; N18.31 Chronic kidney disease, stage 3a; I12.9 Hypertensive chronic kidney disease with stage 1 through stage 4 chronic kidney disease, or unspecified chronic kidney disease; E78.5 Hyperlipidemia, unspecified; F31.9 Bipolar disorder, unspecified; R62.7 Adult failure to thrive; K26.9 Duodenal ulcer, unspecified as acute or chronic, without hemorrhage or perforation; Z79.899 Other long term (current) drug therapy; Z68.20 Body mass index [BMI] 20.0-20.9, adult
CPT/HCPCS: 32555; 36600; 43235; 82652; 83880; 84439; 85378; 87106; 87804; 92526-GN; 92610-GN; 92611-GN; 97110-GP; 97112-GP; 97530-GP; C1729; G0378; J0610; J0696; J1200; J1450; J1610; J1644; J1650; J1720; J1940; J2250; J2310; J2405; J2543; J2920; J2930; J3010; J3370; J3480; J3490; J7042; J7050; J7060; U0003